=== PATIENT | female | born 1980 | race Caucasian/White ===

== ENCOUNTER 2021-12-30 20:07 | Emergency (ER) | payer MEDICAID, SELFPAY ==
[2021-12-30] VITALS (27 sets, daily range): BP systolic 119–143; BP diastolic 61–80; PULSE 49–67; RESP 12–18; TEMP 36.8; O2SAT 97–100
--- NOTE | 2021-12-30 20:00 | RT.EKG_ITS ---
APPROVED REPORT Exam: Resting ECG Reason for Exam: chest pain Patient Location: E HR:52 bpm ECG Measurements Heart Rate 52 AXIS TX 139 P 36 QRSd 85 QRS 65 QT 408 T 74 QTc 381 Conclusion Sinus bradycardia...rate< 60 Physician: Sinus rhythm, rate 52, no significant ST elevations or depressions. Less than a millimeter of nonspe cific elevation in V1 and V2, J-point, no STEMI.
--- NOTE | 2021-12-30 20:15 | DI.CT_ITS ---
Exam(s) CT ABDOMEN PELVIS W EXAM: CT ABDOMEN PELVIS W INDICATION: epigastric pain, hx of perf ulcer, vomiting, LLQ p. COMPARISON: No exams were available for comparison TECHNIQUE: FINDINGS: CT examination of the abdomen and pelvis was performed with intravenous infusion of 50 cc of Visipaqu e 320 and ingestion of Gastrografin. Images obtained through the lung bases are unremarkable. Note is made of marked wall thickening/edema of gastric antrum and duodenal bulb with adjacent fat ed adair noted as well. The patient reportedly has a history of peptic ulcer disease, findings today are suggestive of acute inflammatory process with no gross evidence of perforation. The liver is unremarkable in appearance. Gallbladder has been surgically removed, bile ducts are CT normal. Pancreas appears normal. Spleen is unremarkable in appearance. Adrenals appear normal. The kidneys are unremarkable with no evidence of hydronephrosis, nephrolithiasis, or renal mass.. Ur inary bladder unremarkable. Abdominal aorta is of normal diameter and no major vascular abnormality is seen. No abdominal wall hernia. No abdominal or pelvic adenopathy. BENEFITS ADVISOR structures appear intact. Appendix is nonvisualized but there is no specific evidence of appendicitis l. No evidence of diverti culitis or bowel obstruction. IMPRESSION: Findings suggesting acute inflammatory process of gastric antrum and or duodenal bulb. No evidence o f perforated ulcer by CT criteria.. RADIATION DOSE DELIVERED: 609.8mGy.cm Total DLP 609.8mGy.cm Total DLP !Error CTDIvol RADIATION OPTIMIZATION: All CT scans at this facility use at least one of these dose optimization te chniques: automated exposure control; mA and/or kV adjustment per patient size (includes targeted exa ms where dose is matched to clinical indication); or iterative reconstruction. Intravenous infusion 5 0 cc of Visipaque 320
--- NOTE | 2021-12-30 20:21 | ED.GENADUL_ITS ---
Discharge Plan Disposition Patient Disposition: HOME Condition: Good Discharge Details Clinical Impression: Gastric ulcer, Gastritis, Iron deficiency anemia Primary Care Provider: Unknown,Unknown ED Provider: Luis Alfredo Eckert Home Meds and New Rx's Prescriptions: New pantoprazole [Protonix] 40 mg tablet,delayed release (DR/EC) 40 mg PO DAILY Qty: 60 3RF famotidine 40 mg tablet 40 mg PO BID Qty: 60 3RF sucralfate [Carafate] 1 gram tablet 1 g PO BID Qty: 60 3RF Continued buprenorphine-naloxone [Suboxone] 8-2 mg Film 16 sublingual Discharge Instructions Instructions: Gastritis (ED) Additional Instructions: At this time your laboratory work-up is returned and is stable. Your electrolytes are stable, there is no signs of heart attack. You do have evidence of significant gastric irritation. The medications that we discussed t amina have been sent to your pharmacy. Please take them as directed. Please stick with a bland diet of rice, toast, bananas, crackers. Avoid any fatty, greasy, tomato-based, citrus-based, or spicy foods. Avoid any caffeine intake. If your symptoms persist even in spite of treatment over the next 1 to 2 weeks, you may need reevaluation for potential Helicobacter pylori infection. We will have our disease case manager help facilitate a new primary care provider for you. If you notice any worsening of your symptoms, or any new symptoms such as vomiting, diarrhea, fever, chills, shortness of breath, chest pain, numbness, weakness, or fainting , please return immediately to the emergency department for reevaluation. Please follow up with your primary care provider as soon as possible for reassessment and reevaluation. As always, it was a pleasure participating in your medical care today. Medical Decision Making This is a pleasant 41-year-old female with a past medical history of a previously perforated gastric ulcer which required surgical repair who presents today for epigastric pain and discomfort. Patient states that for the last 3 days she has had a heavy achy gnawing sensation in the epigastric region. She denies any chest tightness, or shortness of breath. She was concerned that this may be the heart, and so has been taking a notably increased amount of Excedrin every day. She denies any recent spicy foods or previous NSAIDs before this, but does admit to a few weeks of generalized uneasiness and diminished appetite in her stomach. She denies any hematemesis, she does admit to vomiting which she describes as bile-like in color. She denies any coffee-ground emesis or melena. She denies any other complaints at this time. No other modifying factors. Patient denies any excessive alcohol intake. She does take Suboxone. She denies any other IV or illicit drugs. Physical exam demonstrates epigastric tenderness as well as left lower quadrant tenderness. No pain to McBurney's point. Negative Roberts sign. Differential is high for pancreatitis, gastritis, gastric ulcer and potential perforated gastric ulcer. Diverticulitis is also concerned with the left lower quadrant pain. Due to the patient's history and current symptoms in conjunction with her complaints, we will get a CT scan and utilize IV and oral contrast. Patient is notably thin, and I do feel that IV contrast is also indicated. However we will only use a reduced dose. It has been requested by radiology staff and that we use reduced or no contrast if possible, however in this scenario I do feel that it is indicated. We will give Protonix, famotidine, and GI cocktail. Will monitor closely and reassess. 11:30 PM Laboratory work-up has returned, no significant abnormalities. Hemoglobin minimally low at 9, patient denies any acute bleeding though. Hemodynamically notably stable. MCV is 72, suspect iron deficiency anemia, most likely related to chronic gastric disease. Primary treatment of this would be appropriate management of her chronic gastritis. Patient does state that she has been out of her Protonix for the last few weeks. This is likely a major factor in what brought about her symptoms. CT scan shows no evidence of perforation or but does show evidence of an abnormal distal stomach and duodenum consistent with peptic ulcer disease. Patient is feeling better and has been able to tolerate p.o. No evidence of perforation. Cardiac etiology is inconsistent with current symptoms and work-up. At this time patient is stable for discharge. We will prescribe high-dose Protonix, famotidine and Carafate for home use. Patient does not have a primary care provider. We will refer to case management for establishment of PCP. Additionally I did discuss with the patient that if she has persistent symptoms over the next few weeks even after dietary changes and medication compliance, she may need further evaluation for Helicobacter pylori testing. Discussed red flags for which to return. I have extensively reviewed the treatment plan and discharge instructions with the patient. I have addressed all patient concerns at this time. The patient was made aware of what symptoms to monitor for that would warrant a return to the emergency department. Discussed the plan with the patient, they demonstrate verbal understanding and agreement with our assessment and plan at this time. The documentation in this chart was dictated using [employer] dictation software. Please excuse any dictation errors. EKG 20: 24 Sinus rhythm, rate 52, no significant ST elevations or depressions. Less than a millimeter of nonspecific elevation in V1 and V2, J-point, no STEMI. FINDINGS: Lungs: Lung bases are clear. Liver: Negative for liver mass or other focal lesion. Liver shows homogeneous parenchyma. Gallbladder and bile ducts: Cholecystectomy clips are noted. The extrahepatic bile ducts are moderately dilated, up to 18 mm. Mild intrahepatic biliary ductal dilatation is observed. There are no calcified stones observed. Pancreas: Normal. No ductal dilation. Spleen: Normal. No splenomegaly. Adrenal glands: Normal. No mass. Kidneys and ureters: Negative for renal mass or hydronephrosis. Kidneys enhance symmetrically. Ureters are nondilated. No stones are observed. Stomach and bowel: Gastric body and antrum are unremarkable. Wall thickening is noted at the distal stomach, extending through the pylorus and involving the 1st portion of the duodenum. Fat stranding is observed around the proximal duodenum. Distal duodenum is unremarkable. There is no free fluid or free air around the pylorus or duodenum. Small bowel is not dilated. Negative for inflammatory changes around the colon. Appendix: No evidence of appendicitis. The appendix is not observed. Intraperitoneal space: No free fluid. No free air. No abscess. Vasculature: Unremarkable. No abdominal aortic aneurysm. Lymph nodes: Mildly enlarged lymph nodes are observed around the proximal duodenum, up to 11 mm diameter. Please see rental representative coronal image 23. Urinary bladder: Unremarkable as visualized. Reproductive: Unremarkable as visualized. Bones/joints: Posterior left 10th rib fracture is partially healed. Mild depression noted at T12 superior endplate, without retropulsion or acute fracture line. Negative for anterior posterior translation of vertebral bodies. Degenerative changes are minimal. Sacroiliac joints are normal. Soft tissues: Unremarkable. IMPRESSION: 1. Abnormal distal stomach/duodenum. Consider peptic ulcer disease. Infectious etiologies also considered. Mild surrounding lymphadenopathy. No evidence of perforation. 2. Abnormal biliary ductal dilatation. Post cholecystectomy reservoir consider ed. Ampullary stricture or choledocholithiasis not excluded. Thank you for allowing us to participate in the care of your patient. Dictated and Authenticated by: Bipin Chun MD 12/30/2021 11:06 PM Eastern Time ([place] & [place]) HPI General Date/Time Provider Initiated Documentation: 12/30/21 20:16 . HPI Narrative: This is a pleasant 41-year-old female with a past medical history of a previously perforated gastric ulcer which required surgical repair who presents today for epigastric pain and discomfort. Patient states that for the last 3 days she has had a heavy achy gnawing sensation in the epigastric region. She denies any chest tightness, or shortness of breath. She was concerned that this may be the heart, and so has been taking a notably increased amount of Excedrin every day. She denies any recent spicy foods or previous NSAIDs before this, but does admit to a few weeks of generalized uneasiness and diminished appetite in her stomach. She denies any hematemesis, she does admit to vomiting which she describes as bile-like in color. She denies any coffee-ground emesis or melena. She denies any other complaints at this time. No other modifying factors. Patient denies any excessive alcohol intake. She does take Suboxone. She denies any other IV or illicit drugs. Related Data Home Medications Medication Instructions Recorded Confirmed buprenorphine 8 mg-naloxone 2 mg 16 sublingual 12/30/21 sublingual film (Suboxone) famotidine 40 mg tablet 40 mg PO BID #60 tabs 12/30/21 pantoprazole 40 mg tablet,delayed 40 mg PO DAILY #60 tabs 12/30/21 release (Protonix) sucralfate 1 gram tablet (Carafate) 1 g PO BID #60 tabs 12/30/21 Previous Rx's Medication Instructions Recorded famotidine 40 mg tablet 40 mg PO BID #60 tabs 12/30/21 pantoprazole 40 mg tablet,delayed 40 mg PO DAILY #60 tabs 12/30/21 release (Protonix) sucralfate 1 gram tablet (Carafate) 1 g PO BID #60 tabs 12/30/21 Allergies Allergy/AdvReac Type Severity Reaction Status Date / Time cefazolin [From Ancef] Allergy Mild Unverified 12/30/21 21:06 cephalexin [From Keflex] Allergy Mild Unverified 12/30/21 21:06 latex AdvReac Mild Unverified 12/30/21 21:06 General Stated Complaint: Chest Pain JARRED: 3 Review of Systems All systems reviewed & are unremarkable except as noted in HPI and below PFSH All Active Problems (Updated 12/30/21 @ 23:33 by Luis Alfredo Eckert DO) Gastric ulcer (Acute) Gastritis (Acute) Iron deficiency anemia (Acute) Social History Smoking/Tobacco Use Status: Current every day Tobacco Type: cigarettes Smoking risk assessment performed?: Yes Alcohol Intake: never Drug use: Current Sobriety Substance use type: does not use and former substance user Do you feel safe at home: Yes Exam Narrative Exam Narrative: 1.Const: Well-nourished, Well-developed, appearing stated age 2.Eyes: PERRL, no conjunctival injection, and symmetrical lids. 3.ENT: Atraumatic external nose and ears. Dry MM. Neck: Symmetric, trachea midline, No thyromegaly. 4.CVS: +S1/S2, No murmurs or gallops. Peripheral pulses 2+ and equal in all extremities. Brisk capillary refill in all extremities. 5.RESP: Unlabored respiratory effort. Clear to auscultation bilaterally. No wheezes rales or rhonchi 6.GI: Soft, nondistended, mild epigastric tenderness on palpation. Mild left lower quadrant tenderness as well. Negative Roberts sign. No pain at McBurney's point. No evidence of an acute surgical abdomen. 7.MSK: Normocephalic/Atraumatic, Extremities w/o deformity or ttp No cyanosis or clubbing, Normal movement of all extremities 8.Skin: Warm, Dry. No rashes or lesions. 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 Sensation grossly intact, no focal neurologic deficits. 10.Psych: (AAO) x3. Appropriate mood and affect Course Vital Signs Vital signs: Vital Signs Temperature 36.8 C 12/30/21 20:08 Pulse 67 12/30/21 20:08 Respiratory Rate 17 12/30/21 20:08 Blood Pressure 128/65 12/30/21 20:08 Pulse Oximetry 100 12/30/21 20:08 Temperature 36.8 C 12/30/21 20:08 Temperature Source Tympanic 12/30/21 20:08 Pulse 67 12/30/21 20:08 Respiratory Rate 17 12/30/21 20:13 Respiratory Effort 12/30/21 20:13 Respiratory Depth Normal 12/30/21 20:13 Respiratory Pattern Normal 12/30/21 20:13 Blood Pressure 128/65 12/30/21 20:08 Blood Pressure Position Sitting 12/30/21 20:08 Pulse Oximetry 100 12/30/21 20:08 Oxygen Delivery Method Room Air 12/30/21 20:08 Oxygen Flow Rate 0 12/30/21 20:08 Pain Level 12 12/30/21 20:08
[2021-12-30 20:26] LABS: Abs Immature Grans 0.02 10^3/uL (0.0-0.06); Absolute Basophil Count 0.03 10^3/uL (0.0-0.2); Absolute Eosinophil Count 0.11 10^3/uL (0.0-0.7); Absolute Lymphocyte Count 1.76 10^3/uL (1.2-3.4); Absolute Monocyte Count 0.46 10^3/uL (0.1-0.8); Absolute Neutrophil Count 5.83 10^3/uL (1.2-6.7); Basophils % 0.4; Eosinophils % 1.3; HCT 31.3 % (36.0-46.0); Immature Grans % 0.2; Lymphocytes % 21.4; MCH 20.6 pg (27.0-33.0); MCHC 28.8 % (32.0-36.0); MCV 72 fL (80-95); MPV 9.6 fL (8.0-11.0); Monocytes % 5.6; Neutrophils % 71.1; Platelet Count 303 10^3/uL (130-400); RBC 4.37 10^6/uL (3.93-5.22); RDW 18.1 % (11.7-14.6); RDW-SD 46.8 fL; WBC 8.21 10^3/uL (4.4-10.8)
[2021-12-30] MEDS: Pantoprazole 40 MG VIAL 80 MG IVP (20:34)
[2021-12-30] MEDS: Normal Saline 1,000 ML 1000 ML IV (20:35)
[2021-12-30] MEDS: Ondansetron 4 MG/2 ML VIAL IVP (20:35)
[2021-12-30] MEDS: FAMOTIDINE 20 MG in Normal Saline 100 ML 400 MG IVPB (20:35)
[2021-12-30 20:39] LABS: Bilirubin Negative (Negative); Blood Moderate (Negative); Clarity Sl Cloudy (Clear); Glucose Negative (Negative); Ketones 15 mg/dL (Negative); Leukocyte Esterase Negative (Negative); Nitrite Negative (Negative); Specific Gravity 1.025 (1.005-1.025); Urobilinogen 0.2 EU/dL (Up TO 0.2)
[2021-12-30 20:40] LABS: ALT 11 U/L (14-59); AST 9 U/L (15-37); Albumin 3.5 g/dL (3.4-5.0); Alkaline Phosphatase 86 U/L (46-116); Anion Gap 8.8 mmol/L (3-11); BUN 12 mg/dL (7-18); Bilirubin, Total 0.2 mg/dL (0.2-1.0); CO2 28.2 mmol/L (21.0-32.0); CREATININE 0.7 mg/dL (0.55-1.02); Chloride 103 mmol/L (98-107); Glucose 105 mg/dL (74-106); Lipase 22 U/L (73-393); Potassium 3.6 mmol/L (3.5-5.1); Sodium 140 mmol/L (136-145); Total Protein 7.7 g/dL (6.4-8.2); Troponin I < 50 ng/L (<or=60)
[2021-12-30 20:49] LABS: Bacteria Negative HPF (Negative); C & S Indicated? No; Crystals Few Amorphous HPF (Negative); Epithelial Cells Few HPF (Negative); Mucus Heavy (Negative); WBC Negative HPF (0-5)
[2021-12-30 21:18] LABS: Anisocytosis 1+; Diff Comment RBC Morph Reviewed; Hypochromasia 1+; Microcytosis 1+; Poikilocytes 1+
[2021-12-30] MEDS: PANTOPRAZOLE 80 MG in Normal Saline 100 ML 10 MG IV (22:37)
--- NOTE | 2021-12-30 23:07 | DI.VRAD_ITS ---
PROCEDURE INFORMATION: Exam: CT Abdomen And Pelvis With Contrast Exam date and time: 12/30/2021 9:48 PM Age: 41 years old Clinical indication: Abdominal pain; Localized; Left lower quadrant (llq); Patient HX: Epigastric pain, HX of perf ulcer, vomiting, llq p TECHNIQUE: Imaging protocol: Computed tomography of the abdomen and pelvis with contrast. COMPARISON: No relevant prior studies available. FINDINGS: Lungs: Lung bases are clear. Liver: Negative for liver mass or other focal lesion. Liver shows homogeneous parenchyma. Gallbladder and bile ducts: Cholecystectomy clips are noted. The extrahepatic bile ducts are moderately dilated, up to 18 mm. Mild intrahepatic biliary ductal dilatation is observed. There are no calcified stones observed. Pancreas: Normal. No ductal dilation. Spleen: Normal. No splenomegaly. Adrenal glands: Normal. No mass. Kidneys and ureters: Negative for renal mass or hydronephrosis. Kidneys enhance symmetrically. Ureters are nondilated. No stones are observed. Stomach and bowel: Gastric body and antrum are unremarkable. Wall thickening is noted at the distal stomach, extending through the pylorus and involving the 1st portion of the duodenum. Fat stranding is observed around the proximal duodenum. Distal duodenum is unremarkable. There is no free fluid or free air around the pylorus or duodenum. Small bowel is not dilated. Negative for inflammatory changes around the colon. Appendix: No evidence of appendicitis. The appendix is not observed. Intraperitoneal space: No free fluid. No free air. No abscess. Vasculature: Unremarkable. No abdominal aortic aneurysm. Lymph nodes: Mildly enlarged lymph nodes are observed around the proximal duodenum, up to 11 mm diameter. Please see assistance representative coronal image 23. Urinary bladder: Unremarkable as visualized. Reproductive: Unremarkable as visualized. Bones/joints: Posterior left 10th rib fracture is partially healed. Mild depression noted at T12 superior endplate, without retropulsion or acute fracture line. Negative for anterior posterior translation of vertebral bodies. Degenerative changes are minimal. Sacroiliac joints are normal. Soft tissues: Unremarkable. IMPRESSION: 1. Abnormal distal stomach/duodenum. Consider peptic ulcer disease. Infectious etiologies also considered. Mild surrounding lymphadenopathy. No evidence of perforation. 2. Abnormal biliary ductal dilatation. Post cholecystectomy reservoir considered. Ampullary stricture or choledocholithiasis not excluded. Dictated and Authenticated by: Bipin Chun MD. Ordering:MIMI Lobato MD
== END 2021-12-30 23:38 | disposition home or self-care (01) ==
PROVIDERS: Emergency Provider Student in an Organized Health Care Education/Training Program
DX: R07.9 Chest pain, unspecified (principal); K29.00 Acute gastritis without bleeding; D50.9 Iron deficiency anemia, unspecified; R10.32 Left lower quadrant pain
CPT/HCPCS: 80053; 83690; 93005; 96361; 96365; 96367; 99285; 74177; 81003; 81015; 84484; 85025; 93010; 99284; J2405

== ENCOUNTER 2023-02-24 16:08 | Outpatient (REF) | payer MEDICAID, SELFPAY ==
[2023-02-24 15:00] LABS: Abs Immature Grans 0.02 10^3/uL (0.0-0.06); Absolute Basophil Count 0.05 10^3/uL (0.0-0.2); Absolute Eosinophil Count 0.26 10^3/uL (0.0-0.7); Absolute Monocyte Count 0.71 10^3/uL (0.1-0.8); Absolute Neutrophil Count 7.95 10^3/uL (1.2-6.7); Basophils % 0.5; Eosinophils % 2.7; HCT 29.3 % (36.0-46.0); HGB 8.4 g/dL (11.2-15.7); Immature Grans % 0.2; Lymphocytes % 8.2; MCH 19.9 pg (27.0-33.0); MCHC 28.7 % (32.0-36.0); MCV 69 fL (80-95); Monocytes % 7.3; Neutrophils % 81.1; RBC 4.23 10^6/uL (3.93-5.22); RDW-SD 49.4 fL; WBC 9.79 10^3/uL (4.4-10.8)
[2023-02-24 15:30] LABS: ALT 7 U/L (14-59); AST 5 U/L (15-37); Albumin 3.4 g/dL (3.4-5.0); Alkaline Phosphatase 78 U/L (46-116); Anion Gap 8.4 mmol/L (3-11); BUN 10 mg/dL (7-18); Bilirubin, Total 0.2 mg/dL (0.2-1.0); CO2 28.6 mmol/L (21.0-32.0); CREATININE 0.8 mg/dL (0.55-1.02); Calcium 8.8 mg/dL (8.5-10.1); Chloride 105 mmol/L (98-107); Estimated GFR 94.28 (mL/min/1.73m2); Glucose 109 mg/dL (74-106); Magnesium 1.6 mg/dL (1.8-2.4); Potassium 3.6 mmol/L (3.5-5.1); Sodium 142 mmol/L (136-145); Total Protein 6.8 g/dL (6.4-8.2)
[2023-02-24 17:28] LABS: Anisocytosis 1+; Diff Comment RBC Morph Reviewed; Hypochromasia 1+; Microcytosis 2+; Platelet Count 379 10^3/uL (130-400)
[2023-02-24 17:29] LABS: Poikilocytes 1+
== END 2023-02-24 16:09 | disposition home or self-care (01) ==
LOC: LBN 16:08
PROVIDERS: Visit Provider Nurse Practitioner Family
DX: R25.2 Cramp and spasm (principal); N30.00 Acute cystitis without hematuria; N12 Tubulo-interstitial nephritis, not specified as acute or chronic; R82.998 Other abnormal findings in urine; D64.9 Anemia, unspecified
CPT/HCPCS: 80053; 87077; 83735; 85025; 87086; 87186

== ENCOUNTER 2023-02-27 15:02 | Outpatient (REF) | payer MEDICAID, SELFPAY | END 2023-02-27 15:03 | disposition home or self-care (01) | LOC: LBN 15:02 | PROVIDERS: Visit Provider Physician Assistant Medical | DX: J02.9 Acute pharyngitis, unspecified (principal) | CPT/HCPCS: 87070 ==